=== PATIENT | female | born 1935 | race African-American/Black ===

== ENCOUNTER 2016-10-28 23:14 | Emergency (ER) | payer OTHER ==
[~2016-10-28] VITALS: Ht 167.6 cm; Wt 86.5 kg
[~2016-10-28 23:14] MED LIST: ALAVERT10 MG PO; ATENOLOL100 M1 PO; CLARITIN10 M3 PO; GABAPENTIN300 MG PO; NAPROSYN500 MG PO; VALIUM2 MG PO
[2016-10-29 01:16] VITALS: BP 188/82
== END 2016-10-29 01:25 | disposition home or self-care (01) ==
LOC: EME 23:14
PROC: 3E0234Z Introduction of Serum, Toxoid and Vaccine into Muscle, Percutaneous Approach (ICD-10-PCS; principal; 2016-10-28)
DX: S00.03XA Contusion of scalp, initial encounter (principal); S06.0X0A Concussion without loss of consciousness, initial encounter; W01.198A Fall on same level from slipping, tripping and stumbling with subsequent striking against other object, initial encounter; Z23 Encounter for immunization; E78.5 Hyperlipidemia, unspecified; I10 Essential (primary) hypertension; Z87.891 Personal history of nicotine dependence
CPT/HCPCS: 70450; 99281; 99285

== ENCOUNTER 2017-11-13 13:36 | Emergency (ER) | payer OTHER ==
[~2017-11-13] VITALS: Ht 167.6 cm; Wt 82.5 kg
[2017-11-13] MEDS ORDERED: NORCO 5/3251 TABLET PO (17:14)
[2017-11-13 18:05] VITALS: BP 167/88
== END 2017-11-13 18:08 | disposition home or self-care (01) ==
LOC: EME 13:36 → EXP 13:36
DX: M25.552 Pain in left hip (principal); M79.605 Pain in left leg
CPT/HCPCS: 73502; 73552; 93971; 99281; 99283

== ENCOUNTER 2017-11-16 15:53 | Emergency (ER) | payer OTHER ==
[~2017-11-16] VITALS: Ht 167.6 cm; Wt 82.7 kg
[~2017-11-16 15:53] MED LIST changes: +NORCO 5/3251 TABLET PO
[2017-11-16] MEDS ORDERED: PERCOCET 5/31 TABLET PO (22:12)
[2017-11-16 22:26] VITALS: BP 192/79
== END 2017-11-16 22:27 | disposition home or self-care (01) ==
LOC: EME 15:53
DX: S72.092A Other fracture of head and neck of left femur, initial encounter for closed fracture (principal); W18.30XA Fall on same level, unspecified, initial encounter; I10 Essential (primary) hypertension; E78.5 Hyperlipidemia, unspecified; M19.91 Primary osteoarthritis, unspecified site; Z87.891 Personal history of nicotine dependence; Z87.39 Personal history of other diseases of the musculoskeletal system and connective tissue
CPT/HCPCS: 72131; 73700; 99281; 99284

== ENCOUNTER 2018-02-15 01:04 | Inpatient (IN) | payer OTHER ==
[~2018-02-15] VITALS: Ht 167.6 cm; Wt 75.0 kg
[~2018-02-15 01:04] MED LIST changes: +PERCOCET 5/31 TABLET PO
[2018-02-15 02:59] LABS: HEMATOCRIT 38.7 % (36.0-46.0); HEMOGLOBIN 12.9 G/DL (11.9-15.5); MCH 31.1 PG (29.0-34.0); MCHC 33.3 G/DL (30.0-36.0); MCV 93.3 FL (83-99); RBC DIS.WIDTH-CV 13.4 % (11.8-14.6); RBC DIS.WIDTH-SD 45.7 % (39-53); RED BLOOD COUNT 4.15 M/uL (3.80-5.20); WHITE BLOOD COUNT 13.4 K/uL (4.1-10.2)
[2018-02-15 03:04] LABS: PTT 25.2 SEC (25-37)
[2018-02-15 03:09] LABS: ALBUMIN 4.1 g/dL (3.2-4.8); CHLORIDE 102 mEq/L (99-109); POTASSIUM 3.9 mEq/L (3.7-5.4); SODIUM 136 mEq/L (136-147)
[2018-02-15 03:11] LABS: GLUCOSE 115 mg/dL (70-99); TOTAL PROTEIN 7.4 g/dL (6.4-8.3)
[2018-02-15 03:13] LABS: TOTAL BILIRUBIN 0.5 mg/dL (0.0-1.0)
[2018-02-15 03:15] LABS: ALKALINE PHOSPHATASE 83 IU/L (3-129); CREATININE 1.1 mg/dL (0.6-1.3); GFR ESTIMATE (CALCULATED) > 59 mL/min/
[2018-02-15 03:16] LABS: UREA NITROGEN (BUN) 25 mg/dL (9-23)
[2018-02-15 03:17] LABS: AST (GOT) 18 IU/L (2-34)
[2018-02-15 03:18] LABS: ALT (GPT) 11 IU/L (3-49)
[2018-02-15 04:26] LABS: PLAT.SUFFICIENCY ADEQUATE; PLATELET COUNT 312 K/uL (156-360)
[2018-02-15 05:36] VITALS: BP 207/91
[2018-02-15 06:08] LABS: HEMATOCRIT 38.2 % (36.0-46.0); HEMOGLOBIN 12.5 G/DL (11.9-15.5); MCH 30.4 PG (29.0-34.0); MCHC 32.7 G/DL (30.0-36.0); MCV 92.9 FL (83-99); RBC DIS.WIDTH-CV 13.2 % (11.8-14.6); RBC DIS.WIDTH-SD 45.2 % (39-53); RED BLOOD COUNT 4.11 M/uL (3.80-5.20); WHITE BLOOD COUNT 14.2 K/uL (4.1-10.2)
[2018-02-15 06:52] LABS: PLAT.SUFFICIENCY INCREASED; PLATELET COUNT 326 K/uL (156-360)
[2018-02-15 07:16] VITALS: BP 180/86
[2018-02-15 10:36] LABS: APPEARANCE CLEAR ((CLEAR)); BILIRUBIN NEGATIVE; BLOOD NEGATIVE; COLOR YELLOW ((YELLOW)); GLUCOSE (STRIP) NEGATIVE; KETONES NEGATIVE; LEUKOCYTES NEGATIVE; NITRITE NEGATIVE; PROTEIN (STRIP) NEGATIVE; UCUL ADDED? NO; UROBILINOGEN 0.2 MG/DL (0.2-1.0)
[2018-02-15 11:20] VITALS: BP 170/74
[2018-02-15] MEDS ORDERED: NAPROSYN500 MG PO (13:19)
[2018-02-15] MEDS ORDERED: LISINOPRIL40 MG PO (13:20)
[2018-02-15] MEDS ORDERED: HYDROCHLOROTHIA25 MG PO (13:21)
[2018-02-15] MEDS ORDERED: LOVASTATIN20 MG PO (13:22)
[2018-02-15] MEDS ORDERED: AMLODIPINE BESYL5 MG PO (13:22)
[2018-02-15] MEDS ORDERED: TRAMADOL HCL50 MG PO (13:23)
[2018-02-15] MEDS ORDERED: ASPIR 8181 M1 PO (13:26)
[2018-02-15 16:02] VITALS: BP 134/61
[2018-02-15 19:35] VITALS: BP 167/76
[2018-02-15 19:52] LABS: BASOPHIL (%) 0.4 % (0-1); BASOPHIL COUNT 0.1 K/uL (0-0.1); EOSINOPHIL (%) 0.5 % (0-5); EOSINOPHIL COUNT 0.1 K/uL (0-0.3); HEMATOCRIT 36.2 % (36.0-46.0); IMMATURE GRANULOCYTE (%) 0.4 % (0.0-0.7); LYMPHOCYTE (%) 19.7 % (15-42); LYMPHOCYTE COUNT 2.5 K/uL (1.0-2.8); MCH 31.2 PG (29.0-34.0); MCHC 33.1 G/DL (30.0-36.0); MONOCYTE (%) 6.8 % (3-12); MONOCYTE COUNT 0.9 K/uL (0-0.8); NEUTROPHIL (%) 72.2 % (45-76); NEUTROPHIL COUNT 9.1 K/uL (1.8-6.4); PLATELET COUNT 316 K/uL (156-360); RBC DIS.WIDTH-CV 13.7 % (11.8-14.6); RBC DIS.WIDTH-SD 47.4 % (39-53); RED BLOOD COUNT 3.85 M/uL (3.80-5.20); WHITE BLOOD COUNT 12.6 K/uL (4.1-10.2)
[2018-02-15 20:54] LABS: A/G RATIO 1.6 (1.1-1.8); ALBUMIN 3.6 G/DL (3.4-5.0); GLOBULINS 2.3 G/DL (2.3-3.5); TOTAL PROTEIN 5.9 G/DL (6.4-8.2)
[2018-02-16] VITALS (7 sets, daily range): BP systolic 139–197; BP diastolic 65–94
[2018-02-16 06:37] LABS: CHLORIDE 107 MEQ/L (99-109); CREATININE 0.8 MG/DL (0.6-1.3); GFR ESTIMATE (CALCULATED) > 59 mL/min/; GLUCOSE 89 mg/dL (70-99); POTASSIUM 3.8 MEQ/L (3.7-5.4); SODIUM 139 MEQ/L (136-147); UREA NITROGEN (BUN) 18 mg/dL (9-23)
[2018-02-16 09:12] LABS: URINE TOTAL PROTEIN 10 MG/DL (0-10)
[2018-02-17 05:30] VITALS: BP 182/81
[2018-02-17 07:52] VITALS: BP 125/58
[2018-02-17 11:55] VITALS: BP 145/75
[2018-02-17 15:25] VITALS: BP 114/47
[2018-02-17 20:01] VITALS: BP 178/79
[2018-02-17 23:40] VITALS: BP 164/72
[2018-02-18 03:39] VITALS: BP 146/74
[2018-02-18 06:57] LABS: BASOPHIL (%) 0.5 % (0-1); BASOPHIL COUNT 0.1 K/uL (0-0.1); EOSINOPHIL (%) 0.9 % (0-5); EOSINOPHIL COUNT 0.1 K/uL (0-0.3); HEMATOCRIT 34.7 % (36.0-46.0); HEMOGLOBIN 11.6 G/DL (11.9-15.5); IMMATURE GRANULOCYTE (%) 0.4 % (0.0-0.7); LYMPHOCYTE (%) 15.7 % (15-42); LYMPHOCYTE COUNT 1.8 K/uL (1.0-2.8); MCH 31.4 PG (29.0-34.0); MCHC 33.4 G/DL (30.0-36.0); MONOCYTE (%) 6.8 % (3-12); MONOCYTE COUNT 0.8 K/uL (0-0.8); NEUTROPHIL (%) 75.7 % (45-76); NEUTROPHIL COUNT 8.6 K/uL (1.8-6.4); PLATELET COUNT 263 K/uL (156-360); RBC DIS.WIDTH-CV 13.9 % (11.8-14.6); RBC DIS.WIDTH-SD 48.1 % (39-53); RED BLOOD COUNT 3.69 M/uL (3.80-5.20); WHITE BLOOD COUNT 11.3 K/uL (4.1-10.2)
[2018-02-18 08:07] VITALS: BP 178/74
[2018-02-18 08:09] LABS: CHLORIDE 108 MEQ/L (99-109); CREATININE 0.7 MG/DL (0.6-1.3); GFR ESTIMATE (CALCULATED) > 59 mL/min/; GLUCOSE 100 mg/dL (70-99); SODIUM 139 MEQ/L (136-147); UREA NITROGEN (BUN) 15 mg/dL (9-23)
[2018-02-18 11:32] VITALS: BP 136/61
[2018-02-18 15:17] LABS: ALBUMIN 3.42 G/DL (3.6-4.9); ALPHA-1 GLOBULIN 0.27 G/DL (0.15-0.40); ALPHA-2 GLOBULIN 0.52 G/DL (0.45-0.85); BETA-GLOBULIN 0.61 G/DL (0.65-1.15); GAMMA-GLOBULIN 1.08 G/DL (0.60-1.35)
[2018-02-18 15:42] VITALS: BP 139/63
[2018-02-18 20:35] VITALS: BP 140/76
[2018-02-19 00:56] VITALS: BP 150/76
[2018-02-19 07:27] VITALS: BP 128/67
[2018-02-19 15:27] VITALS: BP 117/58
[2018-02-19 21:34] VITALS: BP 150/65
[2018-02-19 23:37] VITALS: BP 173/74
[2018-02-20 07:31] VITALS: BP 149/91
[2018-02-20] MEDS ORDERED: FAMOTIDINE20 MG PO (13:18)
[2018-02-20] MEDS ORDERED: SENNA PLUS TAB1 EACH PO (13:19)
[2018-02-20] MEDS ORDERED: DIAZEPAM2 MG PO (13:25)
[2018-02-20] MEDS ORDERED: HYDROCODON-ACE1 EAC7 PO (13:25)
[2018-02-20] MEDS ORDERED: Salonpas 4% Patch TD (13:25)
[2018-02-20] MEDS ORDERED: LORATADINE10 M2 PO (13:25)
== END 2018-02-20 16:02 | DRG 544 ==
LOC: EME → EDBD 01:04 → EDOF 03:50 → 3EAST 03:50
PROVIDERS: Emergency Medicine; Hospitalist; Internal Medicine; Orthopaedic Surgery
PROC: 0S9B3ZX Drainage of Left Hip Joint, Percutaneous Approach, Diagnostic (ICD-10-PCS; principal; 2018-02-17)
DX: M80.052A Age-related osteoporosis with current pathological fracture, left femur, initial encounter for fracture (principal); M54.40 Lumbago with sciatica, unspecified side; M19.90 Unspecified osteoarthritis, unspecified site; K21.9 Gastro-esophageal reflux disease without esophagitis; I10 Essential (primary) hypertension; E78.5 Hyperlipidemia, unspecified; D72.829 Elevated white blood cell count, unspecified; D64.9 Anemia, unspecified; W18.30XA Fall on same level, unspecified, initial encounter; Y93.89 Activity, other specified; Y92.89 Other specified places as the place of occurrence of the external cause; Z87.891 Personal history of nicotine dependence
CPT/HCPCS: 71045; 72192; 72197; 73502; 77012; 80048; 80053; 81003; 84165; 85025; 85027; 85610; 85651; 85730; 86140; 86335; 86850; 86900; 86901; 87070; 87075; 87076; 87205; 88160; 88305; 88307; 93005; 93880; 97530 GO; 99281; 99285; J0360; J1200; J1644; J1885; J3010; J7030